=== PATIENT | male | born 1950 | race Caucasian/White ===

== ENCOUNTER 2018-06-15 15:43 | Observation (INO) ==
[2018-06-15 16:27] LABS: Basophils % 0.5 % (0.0-0.8); Eosinophils # 0.2 10*3/uL (0.0-0.87); Eosinophils % 3.3 % (0.00-10.9); Hematocrit 46.6 VOL% (42.0-52.0); Hemoglobin 15.2 GM/DL (14.0-18.0); Immature Granulocytes % 1.3 %; Immature Granulocytes Absolute 0.08 #; Lymphocytes # 0.8 10*3/uL (1.4-4.0); Lymphocytes % 13.6 % (21.2-54.2); Mean Corpuscular HGB Conc 32.6 GM/DL (32-36); Mean Corpuscular Volume 90.3 FL (87-102); Mean Platelet Volume 10.8 FL (9.6-12.0); Monocytes % 13.2 % (1.7-12.7); Neutrophils % 68.1 % (38.7-73.9); Platelet Count 152 T/CUMM (130-400); Red Blood Count 5.16 MC/CUMM (3.8-5.5); Red Cell Distribution Width 14.4 % (9.3-17.3); White Blood Count 6.1 T/CUMM (4-12)
[2018-06-15 17:09] LABS: Albumin 3.9 G/DL (3.4-5.0); Bilirubin,Total 0.4 MG/DL (0.2-1.0); Total Protein 6.5 G/DL (6.4-8.3)
[2018-06-15] MEDS ORDERED: ONDANSETRON 4 MG/2 ML VIAL IV PRN (18:22)
[2018-06-15] MEDS ORDERED: ENOXAPARIN 40 MG/0.4 ML SYRINGE SUBCUT SCH (21:00)
[2018-06-16 04:30] LABS: Basophils % 0.5 % (0.0-0.8); Eosinophils # 0.2 10*3/uL (0.0-0.87); Eosinophils % 3.3 % (0.00-10.9); Hematocrit 43.5 VOL% (42.0-52.0); Immature Granulocytes Absolute 0.06 #; Lymphocytes # 0.9 10*3/uL (1.4-4.0); Lymphocytes % 15.4 % (21.2-54.2); Mean Corpuscular HGB Conc 32.2 GM/DL (32-36); Mean Corpuscular Volume 91.2 FL (87-102); Mean Platelet Volume 11.1 FL (9.6-12.0); Monocytes % 11.9 % (1.7-12.7); Neutrophils % 67.9 % (38.7-73.9); Platelet Count 130 T/CUMM (130-400); Red Blood Count 4.77 MC/CUMM (3.8-5.5); Red Cell Distribution Width 14.2 % (9.3-17.3); White Blood Count 5.8 T/CUMM (4-12)
[2018-06-16 05:05] LABS: Bilirubin,Total 0.6 MG/DL (0.2-1.0); Calcium 9.1 MG/DL (8.5-10.1); Osmolality,Calculated 289.1 MOS/KG (273-304); Total Protein 5.8 G/DL (6.4-8.3)
[2018-06-16] MEDS ORDERED: ACETAMINOPHEN WITH CODEINE PO PRN (05:54)
[2018-06-16] MEDS ORDERED: [UNRECOGNIZED DRUG - OTHER] PO PRN (05:54)
[2018-06-16] MEDS ORDERED: CLOPIDOGREL 300 MG TABLET PO ONE (05:56)
[2018-06-16] MEDS ORDERED: SODIUM CHLORIDE 0.9% 1,000 ML IV SCH (06:00)
[2018-06-16] MEDS ORDERED: TICAGRELOR 90 MG TABLET PO SCH ×2 (06:00→09:00)
[2018-06-16] MEDS ORDERED: MAGNESIUM SULF RIDER 4 GM in PREMIX 1 EACH IV PRN (07:00)
[2018-06-16] MEDS ORDERED: MAGNESIUM SULF RIDER 2 GM in PREMIX 1 EACH IV PRN (07:00)
[2018-06-16] MEDS ORDERED: MAGNESIUM SULF RIDER 50 ML IV ONE (07:02)
[2018-06-16] MEDS ORDERED: ATORVASTATIN 10 MG TABLET PO SCH (09:00)
[2018-06-16] MEDS ORDERED: CLOPIDOGREL 75 MG TABLET PO SCH (09:00)
[2018-06-16] MEDS ORDERED: diphenhydrAMINE CAP 25 MG CAPSULE ONE (09:26)
[2018-06-16] MEDS ORDERED: DIAZEPAM 5 MG TABLET ONE (09:26)
[2018-06-16] MEDS ORDERED: diphenhydrAMINE CAP 25 MG CAPSULE PO ONE (14:00)
[2018-06-16] MEDS ORDERED: DIAZEPAM 5 MG TABLET PO ONE (14:00)
[2018-06-16] MEDS: LOSARTAN 25 MG TABLET PO SCH (15:16)
[2018-06-16] MEDS: DILTIAZEM CD 120 MG CAPSULE PO SCH (15:16)
[2018-06-16] MEDS: TICAGRELOR 90 MG TABLET PO SCH ×2 (15:16→20:57)
[2018-06-16] MEDS: PROBENECID/COLCHICINE 500-0.5 MG TABLET PO SCH (15:17)
[2018-06-16] MEDS: ASPIRIN EC 81 MG TABLET PO SCH (15:17)
[2018-06-16] MEDS: PANTOPRAZOLE 40 MG TABLET PO SCH (15:17)
[2018-06-16] MEDS: ATORVASTATIN 40 MG TABLET PO SCH (15:17)
[2018-06-16] MEDS: METOPROLOL SUCCINATE XL 100 MG TABLET PO SCH ×2 (15:17→20:57)
[2018-06-16] MEDS: CYANOCOBALAMIN 500 MCG TABLET PO SCH (15:18)
[2018-06-16] MEDS: sitaGLIPtin 100 MG TABLET PO SCH (15:22)
[2018-06-16] MEDS ORDERED: HEPARIN/NACL 0.9% 2 UNITS/ML 1,000 ML IV ONE (15:25)
[2018-06-16] MEDS ORDERED: LIDOCAINE 1% 20 ML VIAL ONE (15:25)
[2018-06-16] MEDS ORDERED: MIDAZOLAM 2 MG/2 ML VIAL ONE ×2 (15:33→16:38)
[2018-06-16] MEDS ORDERED: fentaNYL 100 MCG/2 ML VIAL ONE (15:33)
[2018-06-16] MEDS ORDERED: ENOXAPARIN 60 MG/0.6 ML SYRINGE ONE (16:16)
[2018-06-16] MEDS ORDERED: HEPARIN/NACL 0.9% 2 UNITS/ML 500 ML IV ONE (16:39)
[2018-06-16] MEDS ORDERED: ACETAMINOPHEN 325 MG TABLET PO PRN (17:06)
[2018-06-17 05:39] LABS: Calcium 8.6 MG/DL (8.5-10.1); Osmolality,Calculated 284.3 MOS/KG (273-304)
[2018-06-17 05:46] LABS: Basophils % 0.4 % (0.0-0.8); Eosinophils # 0.2 10*3/uL (0.0-0.87); Eosinophils % 2.4 % (0.00-10.9); Hematocrit 44.3 VOL% (42.0-52.0); Hemoglobin 14.5 GM/DL (14.0-18.0); Immature Granulocytes % 0.7 %; Immature Granulocytes Absolute 0.05 #; Lymphocytes # 0.6 10*3/uL (1.4-4.0); Lymphocytes % 9.1 % (21.2-54.2); Mean Corpuscular HGB Conc 32.7 GM/DL (32-36); Mean Corpuscular Volume 90.6 FL (87-102); Mean Platelet Volume 11.1 FL (9.6-12.0); Monocytes % 11.7 % (1.7-12.7); Neutrophils % 75.7 % (38.7-73.9); Platelet Count 134 T/CUMM (130-400); Red Blood Count 4.89 MC/CUMM (3.8-5.5); Red Cell Distribution Width 14.5 % (9.3-17.3); White Blood Count 6.8 T/CUMM (4-12)
[2018-06-17 08:08] VITALS: BP 164/77
[2018-06-17] MEDS: PANTOPRAZOLE 40 MG TABLET PO SCH (09:26)
[2018-06-17] MEDS: LOSARTAN 25 MG TABLET PO SCH (09:26)
[2018-06-17] MEDS: TICAGRELOR 90 MG TABLET PO SCH (09:26)
[2018-06-17] MEDS: DILTIAZEM CD 120 MG CAPSULE PO SCH (09:27)
[2018-06-17] MEDS: CYANOCOBALAMIN 500 MCG TABLET PO SCH (09:27)
[2018-06-17] MEDS: METOPROLOL SUCCINATE XL 100 MG TABLET PO SCH (09:27)
[2018-06-17] MEDS: ASPIRIN EC 81 MG TABLET PO SCH (09:27)
[2018-06-17] MEDS: sitaGLIPtin 100 MG TABLET PO SCH (09:27)
[2018-06-17] MEDS: PROBENECID/COLCHICINE 500-0.5 MG TABLET PO SCH (09:28)
[2018-06-17] MEDS: ATORVASTATIN 40 MG TABLET PO SCH (09:28)
== END 2018-06-17 11:00 | disposition home or self-care (01) ==
LOC: N.EDINP 15:43 → N.ED 15:43 → N.TELES 19:28
PROVIDERS: ADMIT Internal Medicine Cardiovascular Disease; ATTEND Internal Medicine Cardiovascular Disease